=== PATIENT | female | born 1985 | race Caucasian/White ===

== ENCOUNTER 2020-10-05 13:56 | Emergency (ER) | payer OTHER ==
[~2020-10-05] VITALS: Ht 172.7 cm; Wt 64.7 kg
--- NOTE | 2020-10-05 15:00 | NUR ---
SOFTWARE SUPPORT SPECIALIST: PT TO ROOM FROM LOBBY
--- NOTE | 2020-10-05 15:30 | NUR ---
PT IS A 35/F WHO COMES IN COMPLAINING OF A BLOATED STOMACH, THINKING SHE MIGHT BE . SHE HAS HAD A MIRENA IUD IN FOR 5 YEARS WHICH HAS RECENTLY . PT HAS TAKEN 7 TESTS WHICH WERE ALL NEGATIVE BUT SHE STILL BELIEVES SHE COULD BE . SHES VOMITED RECENTLY AND FEELS LIKE THERE IS SOMETHING IN HER ABDOMEN WHEN SHE IS LYING DOWN. NO FAMILY AT THE BEDSIDE. PATIENT RESTING COMFORTABLY. CALL LIGHT WITHIN REACH.
--- NOTE | 2020-10-05 15:58 | NUR ---
ULTRASOUND AT BEDSIDE.
--- NOTE | 2020-10-05 16:44 | NUR ---
URINE COLLECTED AND SENT TO LAB. PATIENT RESTING COMFORTABLY. NO FAMILY AT BEDSIDE. CALL LIGHT WITHIN REACH. NO ADDITIONAL NEEDS AT THIS TIME.
[2020-10-05 16:57] LABS: MICROSCOPIC INDICATED
[2020-10-05 17:00] VITALS: BP 118/80
--- NOTE | 2020-10-05 17:01 | NUR ---
Patient/Caregiver given discharge instructions and they have confirmed that they understand the instructions. Patient ambulatory with steady gait.
== END 2020-10-05 17:03 | disposition home or self-care (01) ==
LOC: ED 16:55
DX: N83.01 Follicular cyst of right ovary (principal)
CPT/HCPCS: 36415; 76830; 81001; 84703; 87086; 99284